=== PATIENT | female | born 1945 | race Caucasian/White ===

== ENCOUNTER 2022-11-21 10:17 | Outpatient (AMB) | payer MEDICARE, SELFPAY ==
--- NOTE | 2022-11-21 10:25 | AM.OFFWIN_ITS ---
Intake Vital Signs 11/21/22 10:33 Height 5 ft 2 in Weight 153 lb 8 oz BMI 28.1 BP 138/74 Blood Pressure Location Rt brachial Position Sitting Pulse 68 Pulse Source Pulse Oximeter Temp 96.7 F L Temp Source Temporal Artery Scan Pulse Oximetry (%) 98 Oxygen Delivery Method Room Air Intake Visit Reasons: EST/right hand cut on pointer finger(lobby) Intake Note: pt is here for c/o right hand cut on pointer finger Patient Tobacco Use Status: Never used Tobacco Allergies No Known Allergies [No Known Allergies*] Allergy (Verified 11/21/22 10:32) Do you need a note to return to daycare/school/sports/work: No HPI HPI Comments History of Present Illness Details 81-year-old female that presents for fin zana laceration. Patient cutter and repair of electric cart and graham 2 days ago. She presents today for concern of continued bleeding. Unknown last tetanus [facility] Social History Patient Tobacco Use Status: Never used Tobacco Review of Systems Const All systems reviewed & are unremarkable except as noted in HPI and below Skin/Breast Reports wounds Physical Exam Vital Signs: Last Vital Signs Temp 96.7 F L 11/21/22 10:33 Pulse 68 11/21/22 10:33 BP 138/74 11/21/22 10:33 Pulse Ox 98 11/21/22 10:33 Oxygen Delivery Method Room Air 11/21/22 10:33 BMI result Body Mass Index 28.1 Const General: healthy appearing, comfortable, no acute distress and alert Orientation/consciousness: patient oriented x3 Limitations: no limitations HEENT Head: Yes normal to inspection Ears: hearing grossly normal bilaterally Resp Effort & Inspection: normal respiratory effort and able to speak in complete sentences Cardio Rate: regular rate Skin Other: Finger laceration to the left index finger Neuro General: patient oriented x3 Extrem General: Yes normal to inspection Assessment & Plan Assessment & Plan (1) Finger laceration: Code(s): S61.219A - Laceration without foreign body of unspecified finger without damage to nail, initial encounter Qualifiers: Damage to nail status: without damage Encounter type: initial encounter Finger: index finger Foreign body presence: without foreign body Laterality: left Qualified Code(s): S61.211A - Laceration without foreign body of left index finger without damage to nail, initial encounter Plan: VSS. On exam patient presents alert oriented no acute distress exam notable for laceration to the left index finger. Range of motion intact bleeding controlled. Given several days old Steri-Strips were placed wound was washed out and cleaned will place the patient on Keflex given mild erythema to the area. Discharge instructions, follow up and treatment are discussed with patient in my usual fashion. Alternatives in treatment are also discussed. The patient will return for worsening symptoms or as needed. Advised that any labs/imaging ordered will be followed up on and contact made if further treatment needed. Counseled that patient's condition may require further evaluation and/or treatment. Symptoms of concern for worsening disorder discussed in detail in my customary manner. Patient does verbalize understanding of the plan, there are no apparent barriers to communication. The patient is given the opportunity to ask questions and have them answered to his/her satisfaction Orders: Orders Td Immunization Today S61.219A - Laceration without foreign body of unspecified finger without damage to nail, initial encounter, Z23 - Encounter for immunization Medications: New cephalexin 500 mg PO QID 20 caps 0RF 5 days Coding Level of Care Code Est Pt Level 3 (78251) Diagnoses Laceration of left index finger without foreign body without damage to nail, initial encounter S61.211A Damage to nail status: without damage Encounter type: initial encounter Finger: index finger Foreign body presence: without foreign body Laterality: left
[2022-11-21 10:33] VITALS: BP 138/74; PULSE 68; TEMP 35.9; O2SAT 98; BMI 28.1
== END 2022-11-21 11:04 | disposition home or self-care (01) ==
PROVIDERS: PCP Nurse Practitioner Family; Visit Provider Physician Assistant
DX: S61.211A Laceration without foreign body of left index finger without damage to nail, initial encounter (principal); Z23 Encounter for immunization
CPT/HCPCS: 90471; 90714; 99213

== ENCOUNTER → 2023-08-06 10:01 | Outpatient (BNVA) | payer MEDICARE, SELFPAY | PROVIDERS: PCP Nurse Practitioner Family; Visit Provider Nurse Practitioner Family ==

== ENCOUNTER 2024-01-21 07:19 | Day surgery (SDC) | payer MEDICARE, SELFPAY ==
--- NOTE | 2024-01-19 14:37 | HO.ANESPROP2 ---
Documented by User: Gaby Macedo NP 01/19/24 14:38 HPI - Anesthesia Eval Consult details Narrative: 78yo F for Colonoscopy PMFSH Past Medical History Medical History Hypertension Family History Family History Father Prostate cancer Paternal Grandmother Cancer of bone Surgical History Surgical History H/O lumpectomy (~02/2009) History of colonoscopy (~02/2008) Social History Social History Are you a primary healthcare economics manager to a significant other at home: No Do you presently have visiting nurse or other home services: No Alcohol intake: current Alcohol intake frequency: holidays/special occasions only Comment: 1/day (wine with dinner) Patient Tobacco Use Status: Never used Tobacco Smoked in Last 30 Days: No Substance Use Type: Marijuana Have you been hit, kicked, punched, or otherwise hurt by someone within the past year? If so, by whom?: No Are you DNR?: No Advance Directives: No Advance Directives Information Provided: Yes Recently lost weight without trying: No Patient : No Meds Allergies Allergy/AdvReac Type Severity Reaction Status Date / Time No Known Allergies Allergy Verified 08/06/23 10:03 [No Known Allergies*] Home Medications ?Medication ?Instructions ?Recorded ?Confirmed ?Last Taken ?Type estradiol 10 mcg vaginal tablet 10 mcg vaginal 2XW 11/21/22 Unknown History (Yuvafem) losartan 25 mg tablet 25 mg PO DAILY 11/21/22 Unknown History metoprolol succinate 50 mg 50 mg PO DAILY 11/21/22 Unknown History tablet,extended release 24 hr Assessment and Plan Assessment Anesthesia Assessment: Chart Reviewed Documented by User: Terrell Douglas MD 01/21/24 08:48 [facility] Past Medical History Medical History Hypertension Family History Family History Father Prostate cancer Paternal Grandmother Cancer of bone Family history of problems with anesthesia: No Surgical History Surgical History H/O lumpectomy (~02/2009) History of colonoscopy (~02/2008) History of Problems with Anesthesia: No Social History Social History Are you a primary healthcare economics manager to a significant other at home: No Do you presently have visiting nurse or other home services: No Alcohol intake: current Alcohol intake frequency: holidays/special occasions only Comment: 1/day (wine with dinner) Patient Tobacco Use Status: Never used Tobacco Smoked in Last 30 Days: No Substance Use Type: Marijuana Have you been hit, kicked, punched, or otherwise hurt by someone within the past year? If so, by whom?: No Are you DNR?: No Advance Directives: No Advance Directives Information Provided: Yes Recently lost weight without trying: No Patient : No Meds Allergies Allergy/AdvReac Type Severity Reaction Status Date / Time No Known Allergies Allergy Verified 08/06/23 10:03 [No Known Allergies*] Home Medications ?Medication ?Instructions ?Recorded ?Confirmed ?Last Taken ?Type estradiol 10 mcg vaginal tablet 10 mcg vaginal 2XW 11/21/22 Unknown History (Yuvafem) losartan 25 mg tablet 25 mg PO DAILY 11/21/22 Unknown History metoprolol succinate 50 mg 50 mg PO DAILY 11/21/22 Unknown History tablet,extended release 24 hr Exam Airway Mallampati Class: I TM Dist: <=3cm Neck ROM: Full Loose/Missing/Broken Teeth: No Heart: ok Lungs: ok Assessment and Plan Assessment Anesthesia Assessment: Anesthesia Plan Discussed Final Anesthetic Review Family History of Problems with Anesthesia: No History of Problems with Anesthesia: No NPO: Yes ASA Class: III Final Preanesthetic Review: No Changes in Pt Med Stat, Meds/Allgs Chart Reviewed, Consent Obtained/Reviewed and Anes Risks/Benef Reviewed Patient Risk: Intermediate Procedure Risk: Low Anesthetic Plan Anesthetic Plan: MAC: and Agree w/ Assess. and Plan Disposition: Standard PACU
--- NOTE | 2024-01-21 07:57 | MHC.SHP ---
Pre-Procedural Eval Section A - 24 Hr Update-Section A only Date of Service: 01/21/24 Section B - Complete if H&P > 30 days Chief Complaint: POSITIVE COLOGUARD Details of Present Illness: Medical History Hypertension Surgical History H/O lumpectomy (~02/2009) History of colonoscopy (~02/2008) Present Medications: see Short Stay Collaborative assessment Allergies: Allergies Allergy/AdvReac Type Severity Reaction Status Date / Time No Known Allergies Allergy Verified 08/06/23 10:03 [No Known Allergies*] Review of Systems Review of Systems Comment: 10 point ROS negative Exam Surgical H&P Exam: Normal: HEENT, Normal: Heart, Normal: Lungs, Normal: Extremities, Normal: Abdomen, Normal: Skin and Normal: Neurological Plan Diagnosis/Plan: Unchanged I have reviewed the history and physical and performed a pertinent physical examination on my patient. No changes have occurred unless specified. Time Spent With Patient Time: Total time managing care of this patient today ____ minutes.
[2024-01-21 08:09] VITALS: BMI 26.0
[2024-01-21 08:29] VITALS: BP 150/87; PULSE 64; RESP 14; TEMP 36.1; O2SAT 98
[2024-01-21] MEDS: Lactated Ringers 1,000 ML 100 ML IVCONT (08:31)
--- NOTE | 2024-01-21 09:26 | P.OPN-COLO_ITS ---
Colonoscopy Operative Note Operative Note Date of Service: 01/21/24 Narrative: Procedure: Colonoscopy Indication: Positive cologuard Endoscopist: Mer Del Real MD Anesthesia Provider: Dr Terrell Douglas Anesthesia type: MAC Instrument: Olympus [id number]-H190L Consent: Indication, risks vs benefits, and alternatives were discussed with the patient who gave written informed consent to proceed. EKG, pulse, pulse oximetry and blood pressure were monitored throughout the procedure. Please see anesthesia flowsheet. Procedure: The patient was brought to the procedure room and placed in the left lateral decubitus position. IV medications were administered by the anesthesia provider in attendance. A digital rectal exam was performed which was normal. A distal attachment cap was affixed to the tip of the colonoscope which was then inserted through the anus and advanced through the colon to the cecum at 75 cm,and terminal ileum. Appendiceal orifice and ileocecal valve were identified. Mucosa was carefully examined under high definition white light as the instrument was slowly withdrawn in a retrograde panoramic fashion. Retroflexion was performed in rectum. The procedure was not difficult. There were no immediate obvious complications. The quality of the prep was BBPS: 3+2+3 = adequate Withdrawal time 14 minutes. Limitations: No limitations. Findings: Mucosa: Normal to cecum and terminal ileum. Protruding lesions: * 2 sessile polyp of size 2-4 mm in cecum. Cold snare polypectomy was performed. The polyps were completely removed and retrieved. * Medium internal hemorrhoids without stigmata of recent bleeding. Excavated lesions: * Moderate to severe diverticulosis of left sided colon. Impression: 1. Normal colon and terminal ileum mucosa 2. Total of 2 polyps removed 3. Internal hemorrhoids 4. Diverticulosis Recommendations: - Follow path results. - Repeat colonoscopy in 7-10 years if in good health.
[2024-01-21 09:30] VITALS: BP 111/75; PULSE 57; RESP 18; TEMP 36.6; O2SAT 97
[2024-01-21 09:45] VITALS: BP 151/83; PULSE 57; RESP 18; TEMP 36.6; O2SAT 98
--- OUTSIDE RECORDS SUMMARY | 2024-01-21 22:48 | XMS_ITS | Continuity of Care Document ---
Author Organization [facility] lt Address [address] [place] [address]- Care Team Providers Care [place] Lifeguard Name Role Phone Skip ARCINIEGA, Jasmin Pittman Primary Care Physician Encounter [facility] Date(s): 12/10/23 - 01/09/24 [facility] Adult [address] [place] [address]- Encounter Type: Triage Allergies, Adverse Reactions, Alerts Substance Criticality Severity Reaction Reaction Severity Status Pollen Active Other Environmental Allergy SINUSHEADACHE Active Immunizations Given and Recorded Vaccine Date Status Refusal Reason influenza virus vaccine, inactivated 12/09/23 Sanjeev rded influenza virus vaccine, inactivated 11/29/22 Sanjeev rded influenza virus vaccine, inactivated 12/11/21 Sanjeev rded influenza virus vaccine, inactivated 11/30/20 Sanjeev rded influenza virus vaccine, inactivated 11/05/19 Give n influenza virus vaccine, inactivated 12/08/18 Sanjeev rded influenza virus vaccine, inactivated 11/10/18 Sanjeev rded influenza virus vaccine, inactivated 12/05/17 Give n influenza virus vaccine, inactivated 1 12/30/16 Gi sameer influenza virus vaccine, inactivated 01/01/16 Sanjeev rded influenza virus vaccine, inactivated 10/12/15 Sanjeev rded influenza virus vaccine, inactivated 12/20/14 Sanjeev rded SARS-CoV-2(COVID-19)mRNA-LNP vac([id number]) 11/01/23 Recorded SARS-CoV-2(COVID-19)mRNA-LNP vac([id number]) 11/01/22 Recorded tetanus-diphtheria toxoids (Td) 11/21/22 Recorded [id number] bivalent booster vax 11/20/21 Recorded SARS-CoV-2 (COVID-19) mRNA-1273 vaccine 07/16/21 R ecorded SARS-CoV-2 (COVID-19) mRNA-1273 vaccine 12/13/20 R ecorded SARS-CoV-2 (COVID-19) mRNA-1273 vaccine 05/06/20 G iven SARS-CoV-2 (COVID-19) mRNA-1273 vaccine 04/10/20 R ecorded SARS-CoV-2 (COVID-19) mRNA-1273 vaccine 04/08/20 G iven pneumococcal 13-valent vaccine 05/15/17 Given Diphtheria/Tet/Pertussis, Acel (oldterm) 2 05/15/17 Given pneumococcal 23-valent vaccine 02/23/16 Given 1Result Comment: [12/30/2016] [facility] [id number] 2Admin Note: declined Medications claritin claritin, Refills 0, Maintenance, 10/16/16 3:16:05 PM EDT, Compound Start Date: 10/16/16 Status: Ordered Repeat number: 1 Estrace Vaginal Cream 0.1 mg/g = 1 Gm, Vaginally, Daily at bedtime, 1gm daily at bedtime for 2 weeks then reduce to 1 gm 3 times aweek, # 30 Gm, 6 Refills, Maintenance, 12/19/20 2:09:00 PM EST, [id number], Partial fill upon patient request if the prescription is for a schedule II opioid drug., 159, cm, 11/13/20 9:29:00 EDT, Height Start Date: 12/19/20 Status: Ordered Quantity: 30.0 Unit: g Repeat number: 7 losartan 25 mg oral tablet 1 tablet, By Mouth, Daily, # 90 tablet, 1 Refills, Maintenance, 12/10/23 4:02:00 PM EDT, [id number], 159, cm, 08/21/23 10:28:00 EDT, Height Start Date: 12/10/23 Status: Ordered Quantity: 90.0 Unit: tablet Repeat number: 1 Metoprolol Succinate ER 50 mg oral tablet, extended release 1, tablet, By Mouth, Daily, # 90 tablet, Refills 1, Tot. Refills 1, Maintenance, 12/12/23 12:56:00 PM EDT, Route to Pharmacy Electronically, [id number], 159, cm, 08/21/23 10:28:00 EDT, Height Start Date: 12/12/23 Status: Ordered Quantity: 90.0 Unit: tablet Repeat number: 2 [place]-3 Polyunsaturated Fatty Acids By Mouth, 0 Refills, Maintenance, 10/26/10 2:55:10 PM EDT Start Date: 10/26/10 Status: Ordered Repeat number: 1 Vitamin B Complex with Folic Acid oral tablet 1 tablet, By Mouth, Daily, 0 Refills, Maintenance, 10/26/10 2:57:35 PM EDT Start Date: 10/26/10 Status: Ordered Repeat number: 1 Vitamin D3 By Mouth, Daily, 0 Refills, Maintenance, 10/26/10 2:55:29 PM EDT Start Date: 10/26/10 Status: Ordered Repeat number: 1 Problem List Condition Confirmation Course Effective Dates Status Health St atus Informant Hx of breast cancer Confirmed Active HTN - Hypertension Confirmed Active Osteoporosis Confirmed Active Urinary retention Confirmed Active Social History Social History Type Response Smoking Status Never smoker entered on: 02/23/16 Sex Sex Representation Female (finding) Patient Care team information Care Team Personnel Name: Jasmin Valdivia NP Position: [facility] PCO Associate Professional Member Role: PCP Address: [address] [place] [phone]- Telecom: Name: Arnold RUBALCAVA, Angel Canela Position: [facility] WIRE SPLICER Member Role: Lifetime WIRE SPLICER Physician Address: [address] [place] [address] Women's Health [place] [address]- Telecom: Care Team Related Persons Name: AWILDA CHAMBERS Name: MACEY LUCERO Insurance Providers Guarantor name: MELLO JAZMINE Health Plan Information #: 1 Payer: MEDICARE PART B OUTPT Member Number: NA Policy Number: NA Group Number: NA Health Plan Information #: 2 Payer: [employer] HE[employer]CARE SUP Member Number: NA Policy Number: NA Group Number: NA
--- OUTSIDE RECORDS SUMMARY | 2024-01-21 22:48 | XMS_ITS | Continuity of Care Document ---
Author Organization [facility] Address [address] [place] [address]- Care Team Providers Care Frame Tender Name Role Phone Skip ARCINIEGA, Jasmin Pittman Primary Care Physician Encounter [facility] Date(s): 12/12/23 - 01/11/24 [facility] Adult [address] [place] [address]- Encounter Type: Triage Allergies, Adverse Reactions, Alerts [...] virus vaccine, inactivated 12/20/14 Sanjeev rded SARS-CoV-2(COVID-19)mRNA-LNP vac([id number]) 11/01/23 Recorded SARS-CoV-2(COVID-19)mRNA-LNP vac([id number]) 11/01/22 Recorded tetanus-diphtheria toxoids (Td) 11/21/22 Recorded [id number] bivalent booster vax 11/20/21 Recorded SARS-CoV-2 (COVID-19) mRNA-1273 vaccine 07/16/21 R ecorded SARS-CoV-2 (COVID-19) mRNA-1273 vaccine 12/13/20 R ecorded SARS-CoV-2 (COVID-19) mRNA-1273 vaccine 05/06/20 G iven SARS-CoV-2 (COVID-19) mRNA-1273 vaccine 04/10/20 R ecorded SARS-CoV-2 (COVID-19) mRNA-1273 vaccine 04/08/20 G iven pneumococcal 13-valent vaccine 05/15/17 Given Diphtheria/Tet/Pertussis, Acel (oldterm) 2 05/15/17 Given pneumococcal 23-valent vaccine 02/23/16 Given 1Result Comment: [12/30/2016] [facility] [id number] 2Admin Note: declined Medications claritin claritin, Refills 0, Maintenance, 10/16/16 3:16:05 PM EDT, Compound Start Date: 10/16/16 Status: Ordered Repeat number: 1 Estrace Vaginal Cream 0.1 mg/g = 1 Gm, Vaginally, Daily at bedtime, 1gm daily at bedtime for 2 weeks then reduce to 1 gm 3 times aweek, # 30 Gm, 6 Refills, Maintenance, 12/19/20 2:09:00 PM EST, [id number], Partial fill upon patient request if the prescription is for a schedule II opioid drug., 159, cm, 11/13/20 9:29:00 EDT, Height Start Date: 12/19/20 Status: Ordered Quantity: 30.0 Unit: g Repeat number: 7 losartan 25 mg oral tablet 1 tablet, By Mouth, Daily, # 90 tablet, 1 Refills, Maintenance, 12/10/23 4:02:00 PM EDT, [facility], 159, cm, 08/21/23 10:28:00 EDT, Height Start Date: 12/10/23 Status: Ordered Quantity: 90.0 Unit: tablet Repeat number: 1 Metoprolol Succinate ER 50 mg oral tablet, extended release 1, tablet, By Mouth, Daily, # 90 tablet, Refills 1, Tot. Refills 1, Maintenance, 12/12/23 12:56:00 PM EDT, Route to Pharmacy Electronically, [id number], 159, cm, 08/21/23 10:28:00 EDT, Height Start Date: 12/12/23 Status: Ordered Quantity: 90.0 Unit: tablet Repeat number: 2 [place]-3 Polyunsaturated Fatty Acids By Mouth, 0 Refills, [...] Team Personnel Name: Jasmin Valdivia NP Position: [facility] PCO Associate Professional Member Role: PCP Address: [address] [place] [phone]- Telecom: Name: Arnold RUBALCAVA, Angel Canela Position: [facility] HARNESS AND BAG INSPECTOR Member Role: Lifetime HARNESS AND BAG INSPECTOR Physician Address: [address] [place] [address] Women's Health Data [place]house [place] [address]- Telecom: Care Team Related Persons Name: AWILDA CHAMBERS Name: MACEY LUCERO Insurance Providers Guarantor name: MELLO JAZMINE Health Plan Information #: 1 Payer: MEDICARE PART B OUTPT Member Number: NA Policy Number: NA Group Number: NA Health Plan Information #: 2 Payer: [employer] HEALTHCARE SUP Member Number: NA Policy Number: NA Group Number: NA
== END 2024-01-21 10:19 | disposition home or self-care (01) ==
PROVIDERS: PCP Nurse Practitioner Family; Visit Provider Internal Medicine
PROC: 0DJD8ZZ Inspection of Lower Intestinal Tract, Via Natural or Artificial Opening Endoscopic (ICD-10-PCS; CPT 45378; principal; 2024-01-21 08:30)
DX: R19.5 Other fecal abnormalities (principal); D12.0 Benign neoplasm of cecum; K57.30 Diverticulosis of large intestine without perforation or abscess without bleeding; K64.8 Other hemorrhoids; I10 Essential (primary) hypertension; Z85.3 Personal history of malignant neoplasm of breast; Z79.899 Other long term (current) drug therapy; Z98.890 Other specified postprocedural states
CPT/HCPCS: 45385; 88305; J2003; J2704

== ENCOUNTER → 2024-01-21 07:19 | Outpatient (BNV) | payer MEDICARE, SELFPAY | PROVIDERS: PCP Nurse Practitioner Family; Visit Provider Internal Medicine | DX: Z12.11 Encounter for screening for malignant neoplasm of colon (principal); R19.5 Other fecal abnormalities; D12.0 Benign neoplasm of cecum; K57.30 Diverticulosis of large intestine without perforation or abscess without bleeding | CPT/HCPCS: 45385 ==

== ENCOUNTER 2024-01-28 12:18 | Outpatient (AMB) | payer MEDICARE, SELFPAY ==
--- NOTE | 2024-01-28 12:19 | A.OFFVIS_ITS ---
Vital Signs 01/28/24 12:20 Height 5 ft 3 in Weight 150 lb 12.739 oz BMI 26.7 BP 130/72 Blood Pressure Location Lt brachial Position Sitting Pulse 76 Pulse Source Pulse Oximeter Pulse Oximetry (%) 96 Oxygen Delivery Method Room Air Intake Visit Reasons: s/p colon Intake Note: ESTABLISHED PATIENT Marina presents in office today for a scheduled s/p FUV. Meds and Allergies reviewed? Y No recent or relevant surgeries? Melrose w/ BZ Any significant concerns or new changes? Tubular adenoma noted on Pathology Report. 7-10 year recall. Diverticulosis and hemorrhoids also noted. No significant concerns per pt. Pharmacy verified? [facility] Required: No Allergies No Known Allergies [No Known Allergies*] Allergy (Verified 01/28/24 12:27) HPI HPI s/p colon: Details: LAST VISIT Screen for colon cancer Plan Patient denies any GI, cardiac or respiratory symptoms.? Denies any issues with anesthesia in the past.? Denies any history of sleep apnea.? No history infectious diseases in the past or present.? Not on any anticoagulation therapy, however patient is taking fish oil daily. Patient will stop 1 week before procedure. No family or personal history of colon cancer or polyps.? Patient denies melena, hematochezia, unintentional weight loss or ribbon like stools.? Discussed at length the pre-procedure,? prep, diet & medications as well as what to expect prior, during and after the procedure.?? Stressed the importance of good bowel prep.? Recommended the use of Vaseline or Calmoseptine OTC & baby wipes with bowel movements to promote comfort.? ?Patient verbalizes understanding and agrees to plan of care.? She was given the opportunity to ask questions and all questions answered.? We will see her after the procedure.? Medications New bisacodyl (Dulcolax (bisacodyl)) take 4 tabs at noon the day before your colonoscopy 20 mg (4 x 5 mg) PO ONCE 4 tabs 0RF 1 day Z12.11 polyethylene glycol 3350 (Miralax) As directed by gastroenterology department at [facility] 238 grams PO ONCE 238 grams 0RF Z12.11 COLONOSCOPY Findings: Mucosa: Normal to cecum and terminal ileum. Protruding lesions: * 2 sessile polyp of size 2-4 mm in cecum. Cold snare polypectomy was performed. The polyps were completely removed and retrieved. * Medium internal hemorrhoids without stigmata of recent bleeding. Excavated lesions: * Moderate to severe diverticulosis of left sided colon. Impression: 1. Normal colon and terminal ileum mucosa 2. Total of 2 polyps removed 3. Internal hemorrhoids 4. Diverticulosis Recommendations: - Follow path results. - Repeat colonoscopy in 7-10 years if in good health. PATHOLOGY Diagnosis Cecum, polypectomies (2): Tubular adenomata; negative for high-grade dysplasia or carcinoma TODAY'S VISIT: Patient is here today for follow-up and to discuss colonoscopy results. Patient denies any ill effects from the prep, anesthesia or procedure itself. Patient was found to have 2 polyps in cecum both showed tubular adenoma 7-10 years for colonoscopy was recommended, however patient reports that she does not know if she will be able to have done as she will be 85 years old then. Patient denies any abdominal pain or discomfort. Denies any melena, hematochezia. Patient denies any dyspepsia, dysphagia or odynophagia. She denies any GI concerning symptoms. Colonoscopy results discussed with patient [facility] Medical History (Updated 01/28/24 @ 19:09 by DMOINIQUE Stevenson) Diverticulosis Tubular adenoma of colon Hypertension Surgical History (Updated 01/28/24 @ 12:44 by DOMINIQUE Stevenson) H/O lumpectomy (~02/2009) History of colonoscopy (~02/2008) Family History Father Prostate cancer Paternal Grandmother Cancer of bone Social History Are you a primary reproductive healthcare assistant to a significant other at home: No Do you presently have visiting nurse or other home services: No Alcohol intake: current Alcohol intake frequency: holidays/special occasions only Comment: 1/day (wine with dinner) Patient Tobacco Use Status: Never used Tobacco Substance Use Type: Marijuana Physical Exam Vital Signs: Last Vital Signs Pulse 76 01/28/24 12:20 BP 130/72 01/28/24 12:20 Pulse Ox 96 01/28/24 12:20 Oxygen Delivery Method Room Air 01/28/24 12:20 BMI result Body Mass Index 26.7 Assessment & Plan Assessment & Plan (1) Tubular adenoma of colon: Code(s): D12.6 - Benign neoplasm of colon, unspecified Category: Medical (2) Status post colonoscopy: Code(s): Z98.890 - Other specified postprocedural states (3) Diverticulosis: Code(s): K57.90 - Diverticulosis of intestine, part unspecified, without perforation or abscess without bleeding Category: Medical (4) Internal hemorrhoids without complication: Code(s): K64.8 - Other hemorrhoids Plan Tubular adenoma without high-grade dysplasia or carcinoma found. Seven year for follow-up unless symptomatic. Diverticulosis found to left side of the colon, discussed with patient high-fiber diet may take probiotics. Internal hemorrhoids without stigmata or recent bleeding. Patient denies any melena, hematochezia. Denies any GI concerning symptoms and will follow-up with as needed. She will call our office if she will develop any GI concerning symptoms. Patient is agreeable to current plan of care and verbalizes understanding of instructions. She was given the opportunity to ask questions and all questions answered. Thank you for allowing me to participate in her care Coding Level of Care Code Est Pt Level 3 (03293) Diagnoses Tubular adenoma of colon D12.6 Status post colonoscopy Z98.890 Diverticulosis K57.90 Internal hemorrhoids without complication K64.8 Time Spent (min) 30 Comment 20 minutes spent with patient and additional 10 minutes spent reviewing her records
[2024-01-28 12:20] VITALS: BP 130/72; PULSE 76; O2SAT 96; BMI 26.7
== END 2024-01-28 12:41 | disposition home or self-care (01) ==
PROVIDERS: PCP Nurse Practitioner Family; Visit Provider Nurse Practitioner Family
DX: D12.6 Benign neoplasm of colon, unspecified (principal); Z98.890 Other specified postprocedural states; K57.90 Diverticulosis of intestine, part unspecified, without perforation or abscess without bleeding; K64.8 Other hemorrhoids
CPT/HCPCS: 99213

== ENCOUNTER → 2024-01-28 12:18 | Outpatient (BNVA) | payer MEDICARE, SELFPAY | PROVIDERS: PCP Nurse Practitioner Family; Visit Provider Nurse Practitioner Family | DX: D12.6 Benign neoplasm of colon, unspecified (principal); K64.8 Other hemorrhoids; K57.90 Diverticulosis of intestine, part unspecified, without perforation or abscess without bleeding; Z98.890 Other specified postprocedural states | CPT/HCPCS: 99212 ==

== ENCOUNTER 2024-05-22 09:29 | Outpatient (REF) | payer MEDICARE, SELFPAY ==
--- NOTE | ~2024-05-22 | XR_ITS ---
CLINICAL HISTORY: M79.601 - Pain in right arm 3 view right humerus Comparison: None Findings: On 2 of the views there appears to be a fracture at the radial neck. No significant arthritic change. No radiopaque foreign body. IMPRESSION: 1. Normal-appearing humerus. Possible radial neck fracture. Please obtain elbow films. This document has been electronically signed by: Maurice Fox MD on 05/22/2024 11:59:48
--- NOTE | ~2024-05-22 | XR_ITS ---
CLINICAL HISTORY: M79.601 - Pain in right arm 2 view right forearm Comparison: None Findings: There appear to be elevated fat pads at the elbow. Radial neck fracture is not clearly identifiable on these images. No joint effusion. Degenerative changes are seen at the distal radial ulnar joint. No radiopaque foreign body. IMPRESSION: There appear to be elevated fat pads at the elbow. Radial neck fracture is not clearly identifiable on these images. Please correlate with plain films of the right elbow. This document has been electronically signed by: Maurice Fox MD on 05/22/2024 12:04:59
--- NOTE | ~2024-05-22 | XR_ITS ---
CLINICAL HISTORY: M79.601 - Pain in right arm 3 view right hand Comparison: None Findings: No fractures or dislocations. There is severe chronic degenerative changes of the basilar joint. Degenerative changes are also seen at the distal radioulnar joint. 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 No erosions. No radiopaque foreign body. IMPRESSION: 1. No acute findings. 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 Degenerative changes of the distal radioulnar joint. Calcification of the triangular fibrocartilage. This document has been electronically signed by: Maurice Fox MD on 05/22/2024 11:57:17
== END 2024-05-22 09:30 | disposition home or self-care (01) ==
LOC: HO.HMGCX 09:29
PROVIDERS: PCP Nurse Practitioner Family; Visit Provider Physician Assistant
DX: M79.601 Pain in right arm (principal)
CPT/HCPCS: 73060; 73090; 73110; 73130; 99212

== ENCOUNTER → 2024-05-22 09:29 | Outpatient (AMB) | payer MEDICARE, SELFPAY ==
[2024-05-22 10:46] VITALS: BP 130/72; PULSE 66; O2SAT 97
--- NOTE | 2024-05-22 10:46 | AM.OFFWIN_ITS ---
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 The patient reports that while descending two steps from her kitchen to take her dog out, she lost her footing, possibly due to her foot getting caught on a mat or the second step. She was wearing large sneakers with thick soles at the time. Marina describes flying in the air and landing in a belly flop position in front of her garage, which left her winded. Initially, she did not notice any significant pain and was able to get up and sit for a while. However, upon standing, she began to experience pain in her right arm. The pain is primarily localized to the right elbow and forearm, with radiation up to the upper arm when attempting to close her fingers. Marina reports inability to fully straighten her arm or close her fingers without experiencing pain. She also notes difficulty with supination and pronation movements. The patient describes feeling stiffness in the affected area and suspects there might be a pinched nerve. To manage the pain, Marina applied an ice pack immediately after the incident and continued to use ice while meeting a friend for lunch shortly after the fall. Marina denies any loss of consciousness during the event. She mentions that her right hand, which is her dominant hand, was extended when she landed, potentially contributing to the injury. [facility] Medical History (Updated 01/28/24 @ 19:09 by DOMINIQUE Stevenson) Diverticulosis Tubular adenoma of colon Hypertension Surgical History (Updated 01/28/24 @ 12:44 by DOMINIQUE Stevenson) H/O lumpectomy (~02/2009) History of colonoscopy (~02/2008) Family History Father Prostate cancer Paternal Grandmother Cancer of bone Social History Are you a primary acute care physician to a significant other at home: No Do you presently have visiting nurse or other home services: No Alcohol intake: current Alcohol intake frequency: holidays/special occasions only Comment: 1/day (wine with dinner) Patient Tobacco Use Status: Never used Tobacco Substance Use Type: Marijuana Review of Systems [facility] Reports arthralgias, Reports joint swelling and Reports radiating pain into limb Physical Exam Vital Signs: Last Vital Signs Pulse 66 05/22/24 10:46 BP 130/72 05/22/24 10:46 Pulse Ox 97 05/22/24 10:46 Oxygen Delivery Method Room Air 05/22/24 10:46 Const General: cooperative, healthy appearing, no acute distress and alert Orientation/consciousness: patient oriented x3 Limitations: no limitations HEENT Head: Yes normal to inspection Ears: hearing grossly normal bilaterally General nose exam: Normal external nose present Resp Effort & Inspection: normal respiratory effort and able to speak in complete sentences Cardio Rate: regular rate Skin General skin exam: no rashes or lesions noted Neuro General: patient oriented x3 Extrem Other: tenderness to palpation over the right olecranon process. Pain with supination and pronation of the forearm. No obvious pain with flexion some Pain with extension. Some pain with opening and closing of the hand opposition sensation pulses intact. Office Procedures AMB Fracture Care Details: right arm was placed in 90 degree fashion. Arm was wrapped with a gauze. Ortho glass placed in a posterior long arm splint fashion arm in splint was wrapped with Marc bandage patient's arms placed in a sling and 90 degrees PMS checks post intact Fracture Billing Code: Fracture Billing Code Assessment & Plan Assessment & Plan (1) Right arm pain: Code(s): M79.601 - Pain in right arm Plan: Right Arm Injury: - Patient sustained a fall yesterday, landing on her right arm - Reports pain in the elbow, particularly with straightening motion - Unable to close fingers - Physical examination revealed pain with supination and pronation - Clicking noted during manipulation - Initial x-rays inconclusive - Subsequent radiologist review suggestive of a radial head fracture - Mechanism of injury, reported symptoms, and physical examination findings consistent with this diagnosis Plan: - Patient placed in a long arm posterior splint and sling - Urgent referral to orthopedics placed - Recommend ice and heat application for pain management - Advised patient on the risks of prolonged joint immobilization Orders: Orders XR forearm RT 2V Today M79.601 - Pain in right arm XR wrist RT 2V Today M79.601 - Pain in right arm XR humerus RT Today M79.601 - Pain in right arm Referrals Orthopedics Referral S52.123A - Displaced fracture of head of unspecified radius, initial encounter for closed fracture Coding Level of Care Code Est Pt Level 5 (13686) Diagnoses Right arm pain M79.601 CPT Codes Fracture Care - Fracture Billing Code: Fracture Billing Code ([id number])
== END ==
PROVIDERS: PCP Nurse Practitioner Family; Visit Provider Physician Assistant
DX: M79.601 Pain in right arm (principal)

== ENCOUNTER → 2024-05-22 11:18 | Outpatient (BNV) | payer MEDICARE, SELFPAY | PROVIDERS: PCP Nurse Practitioner Family; Visit Provider Radiology Diagnostic Radiology | DX: M79.601 Pain in right arm (principal) | CPT/HCPCS: 73060; 73090; 73130 ==

== ENCOUNTER 2024-06-11 08:13 | Outpatient (REF) | payer MEDICARE, SELFPAY ==
--- NOTE | ~2024-06-11 | XR_ITS ---
EXAMINATION: XR ELBOW 3 VIEWS RIGHT HISTORY: M25.521 - Pain in right elbow COMPARISON: Correlation is made with plain films of the right humerus and forearm dated 05/22/2024. FINDINGS: Three views of the right elbow are submitted. Osseous mineralization is normal. There is a nondisplaced fracture of the radial neck. Callus formation is seen at the fracture site, consistent with healing. No additional fracture is seen. There is no dislocation. The joint spaces are preserved. There is a joint effusion. XR/XR elbow RT min 3V IMPRESSION: Healing nondisplaced fracture of the radial neck. Electronically signed by: Fermin Brown MD 06/11/2024 10:47 AM EDT
== END 2024-06-11 08:14 | disposition home or self-care (01) ==
LOC: HO.HOSX 08:13
DX: M25.521 Pain in right elbow (principal); S52.122A Displaced fracture of head of left radius, initial encounter for closed fracture; S52.002A Unspecified fracture of upper end of left ulna, initial encounter for closed fracture
CPT/HCPCS: 73080; 99202

== ENCOUNTER 2024-06-11 09:22 | Outpatient (AMB) | payer MEDICARE, SELFPAY ==
[2024-06-11 09:28] VITALS: BMI 26.6
--- NOTE | 2024-06-11 09:28 | MHC.OFFVIS ---
Vital Signs 06/11/24 09:28 Height 5 ft 3 in Weight 150 lb BMI 26.6 Intake Visit Reasons: FC- RT radial head fx-DOI 05/21/24 Intake Note: Marina is a 79 year old right hand dominant female who presents today for an evaluation of right radial head fracture, DOI 05/21/24. Patient was seen at [facility] [place] for arm pain s/p fall landing on her stomach. She presented to walk in clinic the following day where x-rays were taken and she was placed in a splint. She returned walk in clinic and was placed in a sling. Patient reports having improvement in her symtpoms since her injury, howver she has ongoing ache and stiffness. Her pain is located on the dorsal aspect forearm. She wears a wrist brace and sling. No numbness or tingling. Hx of arthritis in hand and wrist. Allergies No Known Allergies [No Known Allergies*] Allergy (Verified 06/11/24 09:38) HPI HPI FC- RT radial head fx-DOI 05/21/24: Details: Marina is a 79 year old right hand dominant female who presents today for an evaluation of right radial head fracture, DOI 05/21/24. Patient was seen at [facility] [place] for arm pain s/p fall landing on her stomach. She presented to walk in clinic the following day where x-rays were taken and she was placed in a splint. She returned walk in clinic and was placed in a sling. Patient reports having improvement in her symtpoms since her injury, howver she has ongoing ache and stiffness. Her pain is located on the dorsal aspect forearm. She wears a wrist brace and sling. No numbness or tingling. Hx of arthritis in hand and wrist. Patient does report she was placed in a posterior splint in the walk-in clinic, when she remove this approximately 4-5 days ago. [facility] Medical History (Updated 06/11/24 @ 10:06 by CANDELARIA Bowman) Diverticulosis Tubular adenoma of colon Hypertension Surgical History H/O lumpectomy (~02/2009) History of colonoscopy (~02/2008) Family History Father Prostate cancer Paternal Grandmother Cancer of bone Social History Are you a primary post acute care nurse to a significant other at home: No Do you presently have visiting nurse or other home services: No Alcohol intake: current Alcohol intake frequency: holidays/special occasions only Comment: 1/day (wine with dinner) Patient Tobacco Use Status: Never used Tobacco Substance Use Type: Marijuana Review of Systems Const All systems reviewed & are unremarkable except as noted in HPI and below Physical Exam Vital Signs: BMI result Body Mass Index 26.6 Extrem Other: Patient's right elbow normal to inspection No erythema, ecchymosis, edema noted No lacerations, abrasions, open areas No evidence of infection Patient reports no tenderness to palpation of the radial head, olecranon process, proximal ulna, medial or lateral epicondyles, or elsewhere on the left elbow Patient was able to extend the left elbow to approximately 10 degrees and flex to approximately 100 degrees, reports pain beyond these Distal sensation intact Capillary refill brisk Office Procedures AMB Fracture Care Details: Left radial head fracture Left proximal ulna fracture Fracture Billing Code: Fracture Billing Code Results Reviewed Results Reviewed: X-rays obtained in the office today and independently reviewed by me, Rodo Pang PA-C, demonstrate minimally displaced fractures of both the proximal ulna and radial head with early evidence of interval bony healing. Assessment & Plan Assessment & Plan (1) Left radial head fracture: Code(s): S52.122A - Displaced fracture of head of left radius, initial encounter for closed fracture Category: Medical (2) Fracture of left proximal ulna: Code(s): S52.002A - Unspecified fracture of upper end of left ulna, initial encounter for closed fracture Category: Medical Plan 1. Radial head fracture of left elbow 2. Proximal ulna fracture of the left elbow No signs of joint instability Patient is educated about this condition Patient is educated about the typical treatment course At this time, patient was advised that she will only need to wear the sling for comfort, and she should come out of it while at rest and at home to work on gentle range of motion of the left hand, wrist, elbow Patient was advised on conservative pain management measures such as rest, ice, elevation, Tylenol and ibuprofen as needed Patient was amenable to this plan Follow-up in 3 weeks with repeat x-rays for reassessment, sooner with any acute concerns Orders: Orders XR elbow RT min 3V Today M25.521 - Pain in right elbow Coding Level of Care Code New Pt Level 3 (01500) Diagnoses Left radial head fracture S52.122A Fracture of left proximal ulna S52.002A CPT Codes Fracture Care - Fracture Billing Code: Fracture Billing Code ([id number])
== END 2024-06-11 09:45 | disposition home or self-care (01) ==
LOC: HO.HOS 09:23
PROVIDERS: PCP Nurse Practitioner Family
DX: S52.122A Displaced fracture of head of left radius, initial encounter for closed fracture (principal); S52.002A Unspecified fracture of upper end of left ulna, initial encounter for closed fracture
CPT/HCPCS: 99203

== ENCOUNTER → 2024-06-11 09:27 | Outpatient (BNV) | payer MEDICARE, SELFPAY | PROVIDERS: Visit Provider Radiology Diagnostic Radiology | DX: M25.521 Pain in right elbow (principal) | CPT/HCPCS: 73080 ==

== ENCOUNTER 2024-07-02 07:55 | Outpatient (REF) | payer MEDICARE, SELFPAY ==
--- NOTE | ~2024-07-02 | XR_ITS ---
EXAMINATION: XR ELBOW, LEFT CLINICAL INFORMATION: M25.522 - Pain in right elbow COMPARISON: June 11, 2024. TECHNIQUE: AP, lateral, and oblique views of the left elbow. FINDINGS: Limited by patient's motion artifact. Comminuted fracture at the radial neck without gross callus formation. Distal humerus is intact. Proximal ulna, olecranon and coronoid processes are grossly intact. XR/XR elbow RT min 3V IMPRESSION: Comminuted fracture, radial neck without gross callus formation. Electronically signed by: Jeff Hugo MD 07/02/2024 11:13 AM EDT
== END 2024-07-02 07:56 | disposition home or self-care (01) ==
LOC: HO.HOSX 07:55
DX: S52.002A Unspecified fracture of upper end of left ulna, initial encounter for closed fracture (principal); S52.122A Displaced fracture of head of left radius, initial encounter for closed fracture
CPT/HCPCS: 73080; 99212

== ENCOUNTER 2024-07-02 10:59 | Outpatient (AMB) | payer MEDICARE, SELFPAY ==
--- NOTE | 2024-07-02 11:10 | MHC.OFFVIS ---
Vital Signs 07/02/24 11:13 Height 5 ft 3 in Weight 150 lb BMI 26.6 Handedness Right Intake Visit Reasons: OV-RT radial head fx-DOI 05/21/24-w/xrays Intake Note: Marina is a 79 year old right hand dominant female who presents today for a follow up visit for her right radial head fracture, DOI 05/21/24. Patient reports her symptoms are different depending on day. She expresses her tendons in forearm are always achy. She states the last couple of days she has been feeling decent however when she attempts to make a closed fist or certain movements of the wrist send shooting pain up into forearm. Denies numbness and tingling. Grabbing objects also sends pain into the forearm. Allergies No Known Allergies [No Known Allergies*] Allergy (Verified 07/02/24 11:13) HPI HPI OV-RT radial head fx-DOI 05/21/24-w/xrays: Details: Marina is a 79 year old right hand dominant female who presents today for a follow up visit for her right radial head fracture, DOI 05/21/24. Patient reports her symptoms are different depending on day. She expresses her tendons in forearm are always achy. She states the last couple of days she has been feeling decent however when she attempts to make a closed fist or certain movements of the wrist send shooting pain up into forearm. Denies numbness and tingling. Grabbing objects also sends pain into the forearm. [facility] Medical History (Updated 06/11/24 @ 10:06 by CANDELARIA Bowman) Diverticulosis Tubular adenoma of colon Hypertension Surgical History H/O lumpectomy (~02/2009) History of colonoscopy (~02/2008) Family History Father Prostate cancer Paternal Grandmother Cancer of bone Social History Are you a primary hospice patient care secretary to a significant other at home: No Do you presently have visiting nurse or other home services: No Alcohol intake: current Alcohol intake frequency: holidays/special occasions only Comment: 1/day (wine with dinner) Patient Tobacco Use Status: Never used Tobacco Substance Use Type: Marijuana Physical Exam Vital Signs: BMI result Body Mass Index 26.6 Assessment & Plan Assessment & Plan (1) Fracture of left proximal ulna: Code(s): S52.002A - Unspecified fracture of upper end of left ulna, initial encounter for closed fracture Category: Medical (2) Left radial head fracture: Code(s): S52.122A - Displaced fracture of head of left radius, initial encounter for closed fracture Category: Medical Plan History of Present Illness The patient is a 79-year-old female presenting with concerns of right elbow discomfort following a fracture incurred six weeks ago. The injury was initially managed with immobilization, and pain was noted to increase before weather changes, particularly on the posterior aspect of the elbow. The patient describes improved mobility over time, yet challenges persist with twisting motions and certain flexes, causing tenderness. Efforts to alleviate the discomfort include avoiding heavy lifting and using a compression bandage. 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 Notably, the patient's baseline function has improved, allowing for certain daily activities to be resumed, albeit with limited rotational capacity. Review of Systems - Musculoskeletal: Reports right elbow discomfort, particularly with twisting and flexing. Denies other joint pain aside from pre-existing hand arthritis. - Neurological: Denies numbness or tingling. - General: Denies fever or general malaise. Systems reviewed and are negative except as per HPI and below Physical Exam - Musculoskeletal- Right elbow exhibits limited flexion; flexion up to about 150 degrees with mild tenderness noted; present extension limited to 10 degrees. Swelling or deformity in the right elbow visibly improved compared to previous evaluations. denies any tenderness to palpation about the right radial head or proximal ulna. Results - Imaging: X-ray results display signs of bony healing of the right radial neck fracture. Improved alignment observed in the previously fractured sections of the ulna with progression noted in bone re-approximation. Procedure Plan The patient should discontinue the sling as healing is progressing well. A compression bandage can be utilized for comfort as long as it does not restrict movement. Occupational therapy will focus on gentle range of motion to support recovery of the right elbow. Strengthening exercises are to be deferred until a follow-up assessment in four weeks, where we may initiate such exercises based on improved mobility and healing. The lifting restriction remains at 2-3 pounds to protect against further stress on the right elbow. Further recovery monitoring is planned in 8-12 weeks as this is the typical timeframe for healing of such fractures. Patient was informed and verbally consented to the use of an ambient scribe for clinic note documentation during this visit. Discussion Notes During the consultation, I explained to the patient the current status of her elbow fractures, highlighting the bony healing seen on the latest X-rays. I advised against further sling use and recommended occupational therapy focusing on gentle movements to restore elbow function. We discussed the importance of adhering to lifting restrictions, setting the limit to 2-3 pounds. The patient will be seen again in four weeks for further assessment and potential enhancements to her therapeutic regime. The projected timeline for full recovery, based on typical healing patterns, was discussed as 8-12 weeks from the date of injury, with an emphasis on avoiding overuse or strenuous activities until then. Patient Instructions - Stop using the sling. - Use a compression bandage as needed, but do not let it limit your arm's movement. - Attend occupational therapy sessions as scheduled. - Do exercises at home every day as instructed. - Do not lift anything heavier than 2-3 pounds with your right hand. - Call the occupational therapy department to make an appointment if not done already. - Expect to see improvement in 8-12 weeks from the injury date. Orders: Orders OT Evaluation and Treatment Today S52.002A - Unspecified fracture of upper end of left ulna, initial encounter for closed fracture, S52.122A - Displaced fracture of head of left radius, initial encounter for closed fracture Coding Level of Care Code Global (59558) Diagnoses Fracture of left proximal ulna S52.002A Left radial head fracture S52.122A
[2024-07-02 11:13] VITALS: BMI 26.6
== END 2024-07-02 11:29 | disposition home or self-care (01) ==
LOC: HO.HOS 11:00
PROVIDERS: PCP Nurse Practitioner Family
DX: S52.001A Unspecified fracture of upper end of right ulna, initial encounter for closed fracture (principal); S52.121A Displaced fracture of head of right radius, initial encounter for closed fracture
CPT/HCPCS: 99213

== ENCOUNTER → 2024-07-02 11:02 | Outpatient (BNV) | payer MEDICARE, SELFPAY | PROVIDERS: Visit Provider Radiology Diagnostic Radiology | DX: M25.522 Pain in left elbow (principal) | CPT/HCPCS: 73080 ==

== ENCOUNTER 2024-07-30 08:45 | Outpatient (REF) | payer MEDICARE, SELFPAY ==
--- NOTE | ~2024-07-30 | XR_ITS ---
EXAMINATION: XR ELBOW, RIGHT CLINICAL INFORMATION: M25.522 - Pain in right elbow COMPARISON: July 02, 2024. TECHNIQUE: AP, lateral, and oblique views of the right elbow. FINDINGS: Comminuted fracture right femoral head neck with persistent lucency and no overt callus formation. Distal humerus and proximal ulna/olecranon are intact. XR/XR elbow RT min 3V IMPRESSION: No healing comminuted fracture, right radial head neck. Electronically signed by: Jeff Hugo MD 07/30/2024 02:13 PM EDT
== END 2024-07-30 08:46 | disposition home or self-care (01) ==
LOC: HO.HOSX 08:45
DX: S52.002A Unspecified fracture of upper end of left ulna, initial encounter for closed fracture (principal); S52.122A Displaced fracture of head of left radius, initial encounter for closed fracture
CPT/HCPCS: 73080; 99212

== ENCOUNTER 2024-07-30 13:55 | Outpatient (AMB) | payer MEDICARE, SELFPAY ==
--- OUTSIDE RECORDS SUMMARY | 2024-07-29 23:59 | XMS_ITS | Continuity of Care Document ---
Author Organization [facility] Address [address] [place] [address]- Care Team Providers Care Generation Engineer Name Role Phone Skip ARCINIEGA, Jasmin Pittman Primary Care Physician [phone] [place] [facility] [place]/29/24 [facility] [address] [place] [address]- Encounter Type: Triage Allergies, Adverse Reactions, Alerts [...] virus vaccine, inactivated 12/20/14 Sanjeev rded SARS-CoV-2(COVID-19)mRNA-LNP vac([id number]) 11/01/23 Recorded SARS-CoV-2(COVID-19)mRNA-LNP vac([id number]) 11/01/22 Recorded tetanus-diphtheria toxoids (Td) 11/21/22 Recorded [id number] bivalent booster vax 11/20/21 Recorded SARS-CoV-2 (COVID-19) mRNA-1273 vaccine 07/16/21 R ecorded SARS-CoV-2 (COVID-19) mRNA-1273 vaccine 12/13/20 R ecorded SARS-CoV-2 (COVID-19) mRNA-1273 vaccine 05/06/20 G iven SARS-CoV-2 (COVID-19) mRNA-1273 vaccine 04/10/20 R ecorded SARS-CoV-2 (COVID-19) mRNA-1273 vaccine 04/08/20 G iven pneumococcal 13-valent vaccine 05/15/17 Given Diphtheria/Tet/Pertussis, Acel (oldterm) 2 05/15/17 Given pneumococcal 23-valent vaccine 02/23/16 Given 1Result Comment: [12/30/2016] [facility] [id number] 2Admin Note: declined Medications claritin claritin, Refills 0, Maintenance, 10/16/16 3:16:05 PM EDT, Compound Start Date: 10/16/16 Status: Ordered Repeat number: 1 Estrace Vaginal Cream 0.1 mg/g = 1 Gm, Vaginally, Daily at bedtime, 1gm daily at bedtime for 2 weeks then reduce to 1 gm 3 times aweek, # 30 Gm, 6 Refills, Maintenance, 12/19/20 2:09:00 PM EST, [id number], Partial fill upon patient request if the prescription is for a schedule II opioid drug., 159, cm, 11/13/20 9:29:00 EDT, Height Start Date: 12/19/20 Status: Ordered Quantity: 30.0 Unit: g Repeat number: 7 losartan 25 mg oral tablet 1 tablet, By Mouth, Daily, # 90 tablet, 1 Refills, Maintenance, 06/29/24 9:25:00 AM EDT, [facility], 159, cm, 02/25/24 10:03:00 EST, Height Start Date: 06/29/24 Status: Ordered Quantity: 90.0 Unit: tablet Repeat number: 1 Metoprolol Succinate ER 50 mg oral tablet, extended release 1, tablet, By Mouth, Daily, # 90 tablet, Refills 1, Maintenance, 06/29/24 9:25:00 AM EDT, Route to Pharmacy Electronically, [id number], 159, cm, 02/25/24 10:03:00 EST, Height Start Date: 06/29/24 Status: Ordered Quantity: 90.0 Unit: tablet Repeat number: 1 [place]-3 Polyunsaturated Fatty Acids By Mouth, 0 Refills, [...] Care team information Care Team Personnel Name: Skip ARCINIEGA, Jasmin Pittman Position: [facility] PCO Associate Professional Member Role: PCP Address: [address] [place] [address]- Telecom: Name: rAnold RUBALCAVA, Angel Canela Position: [facility] MEDIA ARTS PROFESSOR MD Member Role: [employer] MEDIA ARTS PROFESSOR Physician Address: [address] [place] [address] [facility] [employer] [place] [address]- Telecom: Care Team Related Persons Name: AWILDA CHAMBERS Name: MACEY LUCERO Insurance Providers Guarantor name: MELLO LUCERO Health Plan Information #: 1 Payer: MEDICARE B Payer Identifier: FANNY Member Number: [id number] Group Number: NA Subscriber Identifier: [id number] Relationship to Subscriber: self Coverage Type: NA Coverage Verification Date: NA Telecom: NA Address: NA Health Plan Information #: 2 Payer: [employer] SECONDARY ONLY Payer Identifier: FANNY Member Number: [id number] Group Number: [id number] Subscriber Identifier: [id number] Relationship to Subscriber: self Coverage Type: MEDICARE Coverage Verification Date: FANNY Telecom: FANNY Address: FANNY
--- NOTE | 2024-07-30 14:00 | MHC.OFFVIS ---
Intake Visit Reasons: OV-RT radial head fx-DOI 05/21/24-w/xrays Intake Note: Marina is a 79 year old right hand dominant female who presents today for a follow up visit for her right radial head fracture, DOI 05/21/24. Patient reports she has been attending occupational therapy and states she notices improvement in her strength and ROM. Denies numbness and tingling. Allergies No Known Allergies (No Known Allergies*) Allergy (Verified 07/30/24 14:04) HPI HPI OV-RT radial head fx-DOI 05/21/24-w/xrays: Details: Marina is a 79 year old right hand dominant female who presents today for a follow up visit for her right radial head fracture, DOI 05/21/24. Patient reports she has been attending occupational therapy and states she notices improvement in her strength and ROM. Denies any ongoing pain in the left elbow. Denies numbness and tingling. [facility] Medical History Diverticulosis Tubular adenoma of colon Hypertension Surgical History H/O lumpectomy (~02/2009) History of colonoscopy (~02/2008) Family History Father Prostate cancer Paternal Grandmother Cancer of bone Social History Are you a primary client care representative to a significant other at home: No Do you presently have visiting nurse or other home services: No Alcohol intake: current Alcohol intake frequency: holidays/special occasions only Comment: 1/day (wine with dinner) Patient Tobacco Use Status: Never used Tobacco Substance Use Type: Marijuana Review of Systems Const All systems reviewed & are unremarkable except as noted in HPI and below Physical Exam Extrem Other: Patient's right elbow normal to inspection No erythema, ecchymosis, edema noted No lacerations, abrasions, open areas No evidence of infection Patient reports no tenderness to palpation of the radial head, olecranon process, proximal ulna, medial or lateral epicondyles, or elsewhere on the left elbow Patient was able to extend the left elbow to approximately 0 degrees and flex to approximately 120 degrees Distal sensation intact Capillary refill brisk Results Reviewed Results Reviewed: X-rays obtained in the office today and independently reviewed by me, Rodo Pang PA-C, demonstrate minimally displaced fractures of both the proximal ulna and radial head with early evidence of interval bony healing. Assessment & Plan Assessment & Plan (1) Fracture of left proximal ulna: Code(s): S52.002A - Unspecified fracture of upper end of left ulna, initial encounter for closed fracture Category: Medical (2) Left radial head fracture: Code(s): S52.122A - Displaced fracture of head of left radius, initial encounter for closed fracture Category: Medical Plan Plan The patient should discontinue the sling as healing is progressing well. A compression bandage can be utilized for comfort as long as it does not restrict movement. Occupational therapy will focus on gentle range of motion to support recovery of the left elbow. Early strength may begin at this time, with a 3-4 lb weight limit in the left hand. Patient should continue working with range of motion of the left elbow and wrist, and can begin more range of motion with regards to supination Discussion Notes During the consultation, I explained to the patient the current status of her elbow fractures, highlighting the bony healing seen on the latest X-rays. I advised against further sling use and recommended occupational therapy focusing on gentle movements to restore elbow function. We discussed the importance of adhering to lifting restrictions, setting the limit to 3-4 pounds. The patient will be seen again in four weeks for further assessment and potential enhancements to her therapeutic regime. The projected timeline for full recovery, based on typical healing patterns, was discussed as 8-12 weeks from the date of injury, with an emphasis on avoiding overuse or strenuous activities until then. Patient Instructions - Stop using the sling. - Attend occupational therapy sessions as scheduled. - Do exercises at home every day as instructed. - Do not lift anything heavier than 2-3 pounds with your right hand. - Call the occupational therapy department to make an appointment if not done already. - Expect to see improvement in 8-12 weeks from the injury date. Coding Level of Care Code Global (24361) Diagnoses Fracture of left proximal ulna S52.002A Left radial head fracture S52.122A
== END 2024-07-30 14:22 | disposition home or self-care (01) ==
LOC: HO.HOS 13:55
DX: S52.002A Unspecified fracture of upper end of left ulna, initial encounter for closed fracture (principal); S52.122A Displaced fracture of head of left radius, initial encounter for closed fracture
CPT/HCPCS: 99213

== ENCOUNTER → 2024-07-30 13:56 | Outpatient (BNV) | payer MEDICARE, SELFPAY | PROVIDERS: Visit Provider Radiology Diagnostic Radiology | DX: S72.001K Fracture of unspecified part of neck of right femur, subsequent encounter for closed fracture with nonunion (principal) | CPT/HCPCS: 73080 ==

== ENCOUNTER 2024-08-20 10:30 | Outpatient (RCR) | payer MEDICARE, SELFPAY ==
--- NOTE | 2024-07-29 13:58 | MHC.OT.OP ---
[address] [phone] F: [phone] Occupational Therapy Progress Note Patient Name: Marina Morgan Diagnosis: (R)radial head fracture Date of Surgery: Date of Evaluation: 07/09/24 Treatments to Date: 4 Cancellations to Date: No Shows to Date: Subjective: It was feeling good. Pain Score: 0 Pain Location: (R)elbow Objective Measures: Active Shoulder flexion 175* Active shoulder abduction 175* Elbow flexion 145* flexion, 0* extension Wrist 45* extension, 55 flexion pain: 0/10 Status: Progressing Assessment: 10 weeks s/p injury: At this time patient patient is making steady progress as she has increase her elbow ROM achieving 145* elbow flexion and 0* flexion. She reports 0/10 pain. Gentle isometric exercises have been initiated and she is tolerating well. OT will continue with slowly progressing strengthening as appropriate. Short Term Goals: Patient will increase (R)shoulder flexion to WFLs Patient will increase (R)shoulder abduction to WFLs Patient will increase (R)elbow flexion to WFLs Patient will increase wrist extension to 56* Patient will increase (R) wrist flexion to 70* Patient will report 6/10 pain during self care tasks Patient will be (I) with edema management techniques Snf Goals: Patient will (R)UE ROM WFLs Patient will be (I) with HEP Patient will report 1/10 pain in (R)elbow Patient will decrease Quick DASH score to at least 38% Patient will be able to play piano (I'ly) with no report of discomfort/ pain Frequency and Duration: The patient will be seen 2x a week for 4 weeks Treatment Plan: Therapeutic Exercise Therapeutic Activity Home Exercise Program Splinting Neuro Re-ed Patient Education Desensitization/Sensory Re-ed Edema Control ADL Training Ultrasound NMES Iontophoresis Paraffin Fluidotherapy MHP Cold Packs Joint Mobilization Soft Tissue Mobilization Kinesiotaping Other (see comments) Skilled OT eval and treat Electronically Signed By: VANIA Rodriguez/Martha, CLT Reviewed/agree with student documentation: Therapist:
--- NOTE | 2024-08-23 09:29 | MHC.OT.DC ---
[address] [phone] F: [phone] Occupational Therapy Discharge Note Patient Name: Marina Morgan Provider: Rodo Pang Diagnosis: (R)radial head fracture Date of Surgery: Date of Evaluation: 07/09/24 Date of Discharge: Treatments to Date: 9 Cancellations to Date: No Shows to Date: Discharge Status: Achieved Goals Improved Function Independent with HEP Discharge Summary: Patient is d/c'd from skilled OT as patient has achieved all of her GOALs. Patient was a pleasure to work with. Electronically Signed By: Gaby Noe OTR/L, CLT Reviewed/agree with student documentation: Therapist: Please Sign and return to therapist, thank you for your referral.
== END 2024-08-23 10:40 | disposition home or self-care (01) ==
LOC: HO.OT 10:30
PROVIDERS: PCP Nurse Practitioner Family
DX: S52.002D Unspecified fracture of upper end of left ulna, subsequent encounter for closed fracture with routine healing (principal); S52.122D Displaced fracture of head of left radius, subsequent encounter for closed fracture with routine healing
CPT/HCPCS: 97110; 97140; 97165

== ENCOUNTER 2024-09-03 10:54 | Outpatient (AMB) | payer MEDICARE, SELFPAY ==
[2024-09-03 10:59] VITALS: BMI 26.6
--- NOTE | 2024-09-03 10:59 | A.OFFVIS_ITS ---
Vital Signs 09/03/24 10:59 Height 5 ft 3 in Weight 150 lb BMI 26.6 Intake Visit Reasons: OV-RT radial head fx-DOI 05/21/24 Intake Note: Marina is a 79 year old female who presents today for a follow up s/p Right Radial Head Fracture 05/21/24. She was advised that she may use a compression bandage for comfort but should be focusing on ROM. She has a 2-3lb weight restriction of the right hand. States using elbow brace helps. States she is also having numbness on and off in her right middle finger. Allergies No Known Allergies (No Known Allergies*) Allergy (Verified 09/03/24 11:04) HPI HPI OV-RT radial head fx-DOI 05/21/24: Details: Marina is a 79 year old female who presents today for a follow up s/p Right Radial Head Fracture 05/21/24. She was advised that she may use a compression bandage for comfort but should be focusing on ROM. She has a 2-3lb weight restriction of the right hand. States using elbow brace helps. States she is also having numbness on and off in her right middle finger. [facility] Medical History Diverticulosis Tubular adenoma of colon Hypertension Surgical History H/O lumpectomy (~02/2009) History of colonoscopy (~02/2008) Family History Father Prostate cancer Paternal Grandmother Cancer of bone Social History Are you a primary clinical care coordinator to a significant other at home: No Do you presently have visiting nurse or other home services: No Alcohol intake: current Alcohol intake frequency: holidays/special occasions only Comment: 1/day (wine with dinner) Patient Tobacco Use Status: Never used Tobacco Substance Use Type: Marijuana Review of Systems Const All systems reviewed & are unremarkable except as noted in HPI and below Physical Exam Vital Signs: BMI result Body Mass Index 26.6 Extrem Other: Patient's right elbow normal to inspection No erythema, ecchymosis, edema noted No lacerations, abrasions, open areas No evidence of infection Patient reports no tenderness to palpation of the radial head, olecranon process, proximal ulna, medial or lateral epicondyles, or elsewhere on the left elbow Patient was able to extend the left elbow to approximately 0 degrees and flex to approximately 120 degrees Distal sensation intact Capillary refill brisk Assessment & Plan Assessment & Plan (1) Fracture of left proximal ulna: Code(s): S52.002A - Unspecified fracture of upper end of left ulna, initial encounter for closed fracture Category: Medical (2) Left radial head fracture: Code(s): S52.122A - Displaced fracture of head of left radius, initial encounter for closed fracture Category: Medical Plan Plan Early strength may begin at this time, with a 3-4 lb weight limit in the left hand. Patient may begin to slowly progress to normal lifting over the next 4-6 weeks Patient should continue working with range of motion of the left elbow and wrist, and can begin more range of motion with regards to supination Discussion Notes During the consultation, I explained to the patient the current status of her elbow fractures, highlighting the bony healing seen on the latest X-rays. I advised against further sling use and recommended occupational therapy focusing on gentle movements to restore elbow function. . The patient will be seen again in four weeks for further assessment and potential enhancements to her therapeutic regime. The projected timeline for full recovery, based on typical healing patterns, was discussed as 8-12 weeks from the date of injury, with an emphasis on avoiding overuse or strenuous activities until then. As patient appears to be recovering well, she may follow-up as needed Coding Level of Care Code Global (61465) Diagnoses Fracture of left proximal ulna S52.002A Left radial head fracture S52.122A
== END 2024-09-03 11:23 | disposition home or self-care (01) ==
LOC: HO.HOS 10:55
PROVIDERS: PCP Nurse Practitioner Family
DX: S52.002A Unspecified fracture of upper end of left ulna, initial encounter for closed fracture (principal); S52.122A Displaced fracture of head of left radius, initial encounter for closed fracture
CPT/HCPCS: 99213

== ENCOUNTER → 2024-09-03 10:54 | Outpatient (BNVA) | payer MEDICARE, SELFPAY | PROVIDERS: PCP Nurse Practitioner Family | DX: S52.002D Unspecified fracture of upper end of left ulna, subsequent encounter for closed fracture with routine healing (principal); S52.122D Displaced fracture of head of left radius, subsequent encounter for closed fracture with routine healing | CPT/HCPCS: 99212 ==

== ENCOUNTER 2024-12-02 14:10 | Outpatient (REF) | payer MEDICARE, SELFPAY ==
--- NOTE | 2024-12-02 14:13 | EMG_ITS ---
Chief complaint: s/p Right Radial Head Fracture 05/21/24, she was on a removable sling, Marc bandage and wrist splint. Started noticing numbness, on and off, mostly on the 3rd digit. Reason for referral: Evaluate for Carpal Tunnel Syndrome Referred by: Rodo GAONA Procedure done: Right upper extremity NCS/EMG Precautions and/or limitations: None The limb temperature was monitored continuously and remained between 32-36 degrees C during the performance of the NCS. Nerve Conduction Studies Anti Sensory Summary Table ?Stim Site NR Onset (ms) Norm Onset (ms) Peak (ms) Norm Peak (ms) O-P Amp (?V) Norm O-P Amp Site1 Site2 Delta-0 (ms) Dist (cm) [place] (m/s) Norm [place] (m/s) Right Median Anti Sensory (2nd Digit) Wrist ? 3.2 4.3 <3.6 4.0 >10 Wrist 2nd Digit 3.2 14.0 44 Right Radial Anti Sensory (Thumb) Forearm ? 1.5 2.1 <3.1 17.9 Forearm Thumb 1.5 0.0 Right Ulnar Anti Sensory (5th Digit) Wrist ? 2.2 3.1 <3.7 13.3 >15.0 Wrist 5th Digit 2.2 14.0 64 Motor Summary Table ?Stim Site NR Onset (ms) Norm Onset (ms) O-P Amp (mV) Norm O-P Amp iAmp (mV) Amp (1st) (%) Site1 Site2 Delta-0 (ms) Dist (cm) [place] (m/s) Norm [place] (m/s) Right Median Motor (Abd Poll Brev) Wrist ? 4.3 <3.9 4.9 >4.5 5.8 100.0 Elbow Wrist 4.3 19.0 44 >45 Elbow ? 8.6 4.1 4.8 83.7 Right Ulnar Motor (Abd Dig Minimi) Wrist ? 2.7 <3.0 6.9 >5 8.7 100.0 B Elbow Wrist 3.1 17.5 56 >45 B Elbow ? 5.8 7.1 8.8 102.9 A Elbow B Elbow 1.5 10.0 67 >45 A Elbow ? 7.3 6.5 8.5 94.2 EMG ?Side Muscle Nerve Root Ins Act Fibs Psw Amp Dur Poly Recrt Int Pat Comment Right 1stDorInt Ulnar C8-T1 Nml Nml Nml Nml Nml 0 Nml Complete Right FlexCarRad Median C6-7 Nml Nml Nml Nml Nml 0 Nml Complete Right Biceps Musculocut C5-6 Nml Nml Nml Nml Nml 0 Nml Complete Right Triceps Radial C6-7-8 Nml Nml Nml Nml Nml 0 Nml Complete Right Deltoid Axillary C5-6 Nml Nml Nml Nml Nml 0 Nml Complete FINDINGS: Right median motor nerve showed prolonged distal latency, normal amplitude and slow conduction velocity. Right median sensory nerve showed small amplitude and prolonged peak latency. All other nerves tested were within normal. Concentric needle EMG was performed in selected muscles of the right upper extremity. Study did not reveal signs of electric abnormalities as shown in the table above. IMPRESSION: 1. This is an abnormal study. 2. There is electrodiagnostic evidence for right moderate-severe median neuropathy at the wrist, consistent with carpal tunnel syndrome. 3. There is no electrodiagnostic evidence for ulnar neuropathy, brachial plexopathy, or cervical radiculopathy. Thank you for your kind referral. Daly Moore MD, LALITO Board Certified, [place] [employer] (ABPMR) Board Certified, [place] [employer] Electro[employer] (ABEM) CODIN [id number], 1 extremity MTDD
== END 2024-12-02 14:11 | disposition home or self-care (01) ==
LOC: HO.NEURO 14:10
PROVIDERS: PCP Nurse Practitioner Family
DX: R20.0 Anesthesia of skin (principal); R20.2 Paresthesia of skin
CPT/HCPCS: 95886; 95909

== ENCOUNTER → 2024-12-02 14:13 | Outpatient (BNV) | payer MEDICARE, SELFPAY | PROVIDERS: PCP Nurse Practitioner Family; Visit Provider Physical Medicine & Rehabilitation | DX: G56.11 Other lesions of median nerve, right upper limb (principal) | CPT/HCPCS: 95886; 95909 ==